=== PATIENT | female | born 1970 | race African-American/Black ===

== ENCOUNTER 2022-09-07 13:41 | Emergency (ER) | payer MEDICAID ==
[~2022-09-07] VITALS: Ht 175.3 cm; Wt 74.3 kg
[2022-09-07 15:55] VITALS: BP 146/86
[2022-09-07] MEDS ORDERED: IBUP800T27 PO (15:57)
[2022-09-07] MEDS ORDERED: AMOX-277 PO (15:57)
== END 2022-09-07 16:04 | disposition home or self-care (01) ==
LOC: ER 13:41
DX: H66.91 Otitis media, unspecified, right ear (principal)